=== PATIENT | male | born 1945 | race Hispanic/Latino ===

== ENCOUNTER 2018-08-21 11:00 | Emergency (ER) | payer MEDICARE ==
[2018-08-21 11:21] LABS: Bilirubin Negative (Negative); Blood, Urine Negative (Negative); Clarity Clear (Clear); Glucose, Urine (Dipstick) 500 mg/dL (Negative); Leukocyte Negative (Negative); Nitrite Negative (Negative); Protein, Urine (Dipstick) Negative (Neg-Trace); Urobilinogen 0.2 mg/dL (0.2-1.0); pH, Urine 5.5 (5.0-9.0)
[2018-08-21 11:39] LABS: Amphetamine Not Detected (NotDetected); Barbiturates Screen Not Detected (NotDetected); Benzodiazepine Screen Not Detected (NotDetected); Cocaine Metabolite Screen Not Detected (NotDetected); Medtox Control Line Valid? VALID (VALID); Methadone Not Detected (NotDetected); Methamphetamine Not Detected (NotDetected); Opiate Screen Not Detected (NotDetected); Oxycodone Screen Not Detected (NotDetected); Phencyclidine (PCP) Not Detected (NotDetected); THC/Cannabinoid Screen Not Detected (NotDetected); Tricyclic Screen Not Detected (NotDetected)
== END 2018-08-21 11:36 | disposition home or self-care (01) ==
LOC: SCSER 11:00
DX: N48.1 Balanitis (principal); I10 Essential (primary) hypertension; E11.9 Type 2 diabetes mellitus without complications; E78.5 Hyperlipidemia, unspecified
CPT/HCPCS: 36416; 80306; 81003; 99283

== ENCOUNTER 2020-03-15 07:40 | Outpatient (CLI) | payer MEDICARE ==
--- NOTE | 2020-03-15 09:51 | CT ---
CT ABDOMEN AND PELVIS WITH CONTRAST: HISTORY: Epigastric pain. COMPARISON: None. FINDINGS: Dense calcifications along expected location of the aortic valve are incompletely evaluated. Lung bases are clear. No pericardial effusion. Liver, gallbladder, spleen, and pancreas are unremarkable. No hydronephrosis. Adrenal glands are normal. No retroperitoneal or periaortic adenopathy. There is contrast throughout the colon. Mild wall thickening of the hepatic flexure including submuc osal edema. No hydronephrosis. Nonspecific sub-5 mm hypodensities of both kidneys. No retroperitoneal or periaortic adenopathy. Moderate facet arthrosis of L4-5 and L5-S1, both grade I 2-3 mm L4 over L5 anterolisthesis and posterior displacement of disk material as an adaptation to s ubluxation. IMPRESSION: 1. Findings of mild hepatic flexure colitis. 2. No other acute inflammatory process in the abdomen or pelvis. 3. Abnormal calcification along the expected location of the aortic valve for which echocardiogram c ould be performed. POS: [facility]
[2020-03-15] MEDS ORDERED: Iopamidol-370 76% 500 ML 1 ML ONE (10:49)
== END 2020-03-15 07:41 | disposition home or self-care (01) ==
LOC: BICCT 07:40
PROVIDERS: ATTEND Internal Medicine Gastroenterology
DX: R10.13 Epigastric pain (principal); R63.4 Abnormal weight loss; K52.89 Other specified noninfective gastroenteritis and colitis
CPT/HCPCS: 74177; 82565; Q9967